=== PATIENT | male | born 1970 | race Caucasian/White ===

== ENCOUNTER 2018-05-18 12:06 | Emergency (ER) | payer MEDICAID, OTHER, SELFPAY ==
[2018-05-18 12:18] VITALS: BMI 28.0
--- NOTE | 2018-05-18 12:43 | C.PDOC ---
History Of Present Illness 48 y/o male,w/PMhx of diabetes and herniated discs (L4 and L5), brought to ER by ambulance, complaining of low back pain which has become gradually worse over the past 3 days. Patient states that he typically takes Naproxen for pain. However, he woke up with excruciating pain in the morning today and he took Naproxen without relief. He notes that he called for the ambulance and he was brought to ER by ambulance.Denies having direct trauma, injuries, dysuria, hematuria, bowel/bladder incontinence, weakness, and parasthesias. Chief Complaint (Nursing): Back Pain History Per: Patient History/Exam Limitations: no limitations Onset/Duration Of Symptoms: Hrs Current Symptoms Are (Timing): Still Present Severity: Moderate Past Medical History Reviewed: Historical Data, Nursing Documentation, Vital Signs Vital Signs: Last Vital Signs Temp 97.5 F L 05/18/18 12:10 Pulse 92 H 05/18/18 12:10 Resp 20 05/18/18 12:10 BP 176/91 H 05/18/18 12:10 Pulse Ox 98 05/18/18 12:10 - Medical History PMH: Diabetes Surgical History: Denies: Pacemaker - [facility] Procedures CORONAR ARTERIOGR-2 CATH (08/21/12) LEFT HEART CARDIAC CATH (08/21/12) LT HEART ANGIOCARDIOGRAM (08/21/12) Family History: States: No Known Family Hx - Social History Hx Alcohol Use: Yes (QUIT JANUARY 2012) Hx Substance Use: No Review Of Systems Genitourinary: Negative for: Dysuria, Frequency, Hematuria Musculoskeletal: Positive for: Back Pain Neurological: Negative for: Weakness, Numbness Physical Exam - Physical Exam Appears: Non-toxic, No Acute Distress Skin: Normal Color, Warm, Dry Head: Atraumatic, Normacephalic Eye(s): bilateral: Normal Inspection Nose: Normal Oral Mucosa: Moist Neck: Supple Chest: Symmetrical Cardiovascular: Rhythm Regular Respiratory: Normal Breath Sounds, No Rales, No Rhonchi, No Wheezing Gastrointestinal/Abdominal: Normal Exam, Soft, No Tenderness, No Guarding, No Rebound Back: No CVA Tenderness, Vertebral Tenderness, Decreased ROM, Paraspinal Tenderness (lumbar paraspinal tenderness) Extremity: Normal ROM Extremity: Bilateral: Atraumatic Neurological/Psych: Oriented x3, Normal Speech ED Course And Treatment O2 Sat by Pulse Oximetry: 98 (RA) Pulse Ox Interpretation: Normal - Other Rad [id number] Spine X-Ray: Viewed By Me, Read By Radiologist Interpretation: Date of service: 05/18/2018. PROCEDURE: Radiographs of the Lumbar Spine. HISTORY: pain; h/o herniated discs. COMPARISON: No prior lumbar spine radiographs available for direct comparison. FINDINGS: Examination limited by habitus. BONES: Alignment appears satisfactory. No listhesis. No acute displaced fracture identified. Facet hypertrophy. DISC SPACES: Unremarkable. OTHER FINDINGS: None. IMPRESSION: Examination limited by habitus. No acute displaced fracture or subluxation identified. Facet hypertrophy. Progress Note: Patient treated with Flexeril PO, Toradol IM, and Lidoderm Patch.[id number] Spine ordered. Medical Decision Making Medical Decision Making: Impression: Low back pain; h/o of herniated discs L4/L5 Plan: patient refused narcotics, started on Toradol 60mg IM, Flexeril 10mg, and Lidocaine patch applied LS Xray ordered and revealed no acute displaced fracture or subluxation identified patient resting since xray was performed but when aroused, began complaining of pain Motrin 800mg PO given and patient is resting comfortably on reassessment Patient was awaken to discuss discharge and need for follow up with Ortho. He states that he doesn't want to follow up with them because they caused "more problems with his back" (nonspecific) He then became very agitated/ belligerent because he was still in pain Explained to patient that the meds we have given him is not going to cure the pain immediately but will improve over time Patient became verbally abusive and refused crutches and wanted to be transported home by ambulance Security was notified and escorted patient out Of note, patient changed out of gown to his clothes and ambulated to wheelchair without complaining of pain Advised patient that he can return to ED if symptoms worsen but should be seen by Ortho/ Pain management Disposition Counseled Patient/Family Regarding: Studies Performed, Diagnosis, Need For Followup, Rx Given - Disposition Referrals: [facility] at [facility] [Outside] Orthopedic Clinic at [Outside] Disposition: HOME/ ROUTINE Disposition Time: 16:24 Condition: IMPROVED Additional Instructions: Continue Motrin and Flexeril as instructed Rest and Ice the area Lidoderm patches to affected area Follow up with Ortho 1-2 days or in Clinic on Tuesday Return to ED if symptoms worsen Prescriptions: Cyclobenzaprine [Flexeril] 10 mg PO TID PRN #15 tab PRN Reason: Muscle Spasm Ibuprofen [Motrin] 600 mg PO Q6 PRN #30 tab PRN Reason: Pain, Moderate (4-7) Lidocaine 5% [Lidoderm] 1 each TP DAILY #30 patch Instructions: Low Back Pain (DC), Herniated Disc (DC), Do I Need an X-ray (or Other Test) for Low Back Pain?, Herniated Disc Exercises Forms: [employer] (Thai) Print Language: DANISH - Clinical Impression Clinical Impression: Low back pain, Herniated disc - PA / PHLEBOTOMIST ASSOCIATE / Resident Statement MD/DO has reviewed & agrees with the documentation as recorded. - Scribe Statement The provider has reviewed the documentation as recorded by the Scribe Farhad Mahmood Provider Attestation All medical record entries made by the Scribe were at my direction and personally dictated by me. I have reviewed the chart and agree that the record accurately reflects my personal performance of the history, physical exam, medical decision making, and the department course for this patient. I have also personally directed, reviewed, and agree with the discharge instructions and disposition.
[2018-05-18] MEDS ORDERED: Lidocaine 5% Patch TD STA (12:56)
[2018-05-18] MEDS ORDERED: Lidocaine 5% Patch TD ONE (13:05)
--- NOTE | 2018-05-18 14:18 | RAD ---
Date of service: 05/18/2018 PROCEDURE: Radiographs of the Lumbar Spine. HISTORY: pain; h/o herniated discs COMPARISON: No prior lumbar spine radiographs available for direct comparison. FINDINGS: Examination limited by habitus. BONES: Alignment appears satisfactory. No listhesis. No acute displaced fracture identified. Facet hypertrophy. DISC SPACES: Unremarkable. OTHER FINDINGS: None. IMPRESSION: Examination limited by habitus. No acute displaced fracture or subluxation identified. Facet hypertrophy.
[2018-05-18 17:00] VITALS: BP 163/90; PULSE 78; RESP 19; TEMP 98
[2018-05-18 17:05] VITALS: O2SAT 98
== END 2018-05-18 17:00 | disposition home or self-care (01) ==
LOC: C.ER 12:06
DX: M54.5 Low back pain (principal); M51.26 Other intervertebral disc displacement, lumbar region
CPT/HCPCS: 72100; 82948; 96372; 99284; J1885